=== PATIENT | male | born 1960 | race Caucasian/White ===

== ENCOUNTER 2022-05-28 09:00 | Inpatient (IN) ==
[2022-05-28] MEDS ORDERED: GLUCAGON 1 MG VIAL IM PRN (09:28)
[2022-05-28] MEDS ORDERED: DEXTROSE 10% 250 ML BAG IV PRN (09:37)
[2022-05-28] MEDS ORDERED: MORPHINE 2 MG/1 ML SYRINGE IV PRN (15:02)
[2022-05-28] MEDS ORDERED: NITROGLYCERIN SL 0.4 MG TABLET SL PRN (15:02)
[2022-05-28] MEDS: INSULIN REGULAR 100 UNIT/ML SUBCUT SCH ×3 (15:11→22:26)
[2022-05-28] MEDS: SODIUM CHLORIDE 0.9% 1,000 ML IV SCH (15:11)
[2022-05-28 15:19] LABS: Basophils # 0.1 10*3/uL (0.0-0.2); Basophils % 0.8 % (0.0-0.8); Eosinophils # 0.4 10*3/uL (0.0-0.87); Eosinophils % 3.8 % (0.00-10.9); Hematocrit 48.6 VOL% (42.0-52.0); Hemoglobin 15.8 GM/DL (14.0-18.0); Immature Granulocytes % 0.4 %; Immature Granulocytes Absolute 0.04 #; Lymphocytes # 2.8 10*3/uL (1.4-4.0); Lymphocytes % 28.2 % (21.2-54.2); Mean Corpuscular HGB Conc 32.5 GM/DL (32-36); Mean Corpuscular Volume 94.2 FL (87-102); Mean Platelet Volume 9.8 FL (9.6-12.0); Monocytes # 0.7 10*3/uL (0.11-0.8); Monocytes % 7.2 % (1.7-12.7); Neutrophils % 59.6 % (38.7-73.9); Platelet Count 216 T/CUMM (130-400); Red Blood Count 5.16 MC/CUMM (3.8-5.5); Red Cell Distribution Width 14.2 % (9.3-17.3)
[2022-05-28] MEDS: CHLORHEXIDINE 4% SOLN 118 ML BOTTLE TOP SCH ×2 (15:31→21:49)
[2022-05-28] MEDS ORDERED: ONDANSETRON 4 MG/2 ML VIAL IV PRN (15:34)
[2022-05-28] MEDS ORDERED: ZALEPLON 5 MG CAPSULE PO PRN (15:35)
[2022-05-28] MEDS ORDERED: hydrALAZINE 20 MG/1 ML VIAL IV PRN (15:38)
[2022-05-28 15:41] LABS: Alanine Aminotransferase 37 U/L (16-61); Albumin 3.5 G/DL (3.4-5.0); Alkaline Phosphatase 164 U/L (45-117); Aspartate Amino Transferase 16 U/L (0-37); Bilirubin,Total < 0.39 MG/DL (0.20-1.00); Blood Urea Nitrogen 26 MG/DL (7-18); Calcium 9.6 MG/DL (8.5-10.1); Carbon Dioxide 26 MMOL/L (21-32); Chloride 103 MMOL/L (98-107); Glucose 355 MG/DL (74-106); Osmolality,Calculated 288.1 MOS/KG (273-304); Potassium 4.7 MMOL/L (3.5-5.1); Sodium 135 MMOL/L (136-145); Total Protein 7.3 G/DL (6.4-8.2)
[2022-05-28] MEDS: CLORAZEPATE 3.75 MG TABLET PO PRN ×2 (16:36→21:49)
[2022-05-28 16:56] LABS: Arterial Base Excess iSTAT 0 MMOL/L (-2.5-2.5); Arterial Bicarbonate iSTAT 25.4 MMOL/L (20-26); Arterial O2 Saturation iSTAT 96 % (95-100); Arterial PCO2 iSTAT 44 MM HG (35-48); Arterial PO2 iSTAT 86 MM HG (80-95); Arterial Total CO2 iSTAT 27 MMO/L (23-27); Arterial pH iSTAT 7.374 (7.35-7.45)
[2022-05-28] MEDS ORDERED: PANTOPRAZOLE 40 MG TABLET PO ONE (20:09)
[2022-05-28] MEDS ORDERED: DIAZEPAM 5 MG TABLET PO ONE (20:09)
[2022-05-28] MEDS ORDERED: AMITRIPTYLINE 25 MG TABLET PO SCH (21:00)
[2022-05-28] MEDS: GABAPENTIN 400 MG CAPSULE PO SCH (21:49)
[2022-05-28] MEDS: CHLORHEXIDINE 0.12% ORAL RINSE 60 ML BOTTLE SWISH/SPIT SCH (21:49)
[2022-05-29] MEDS ORDERED: CEFUROXIME INJ 1,500 MG in SODIUM CHLORIDE 0.9% 100 ML IV ONE (05:00)
[2022-05-29] MEDS: CHLORHEXIDINE 4% SOLN 118 ML BOTTLE TOP SCH (05:52)
[2022-05-29] MEDS ORDERED: DIAZEPAM 5 MG TABLET PO ONE (06:00)
[2022-05-29] MEDS ORDERED: PANTOPRAZOLE 40 MG TABLET PO ONE (06:00)
[2022-05-29] MEDS ORDERED: VECURONIUM 10 MG VIAL IV ONE ×3 (06:18→08:50)
[2022-05-29] MEDS ORDERED: PHENYLEPHRINE DRIP 20 MG/250 ML PREMIX IV ONE (06:18)
[2022-05-29] MEDS ORDERED: MIDAZOLAM 10 MG/2 ML VIAL ONE ×3 (06:18→07:57)
[2022-05-29] MEDS ORDERED: LACTATED RINGERS 1,000 ML IV ONE (06:18)
[2022-05-29] MEDS ORDERED: ETOMIDATE 40 MG/20 ML VIAL IV ONE (06:18)
[2022-05-29] MEDS ORDERED: SODIUM CHLORIDE 0.9% 250 ML IV ONE (06:18)
[2022-05-29] MEDS ORDERED: SODIUM CHLORIDE 0.9% 1,000 ML IV ONE (06:18)
[2022-05-29] MEDS ORDERED: LIDOCAINE 2% 5 ML VIAL ONE ×2 (06:18→10:43)
[2022-05-29] MEDS ORDERED: SEVOFLURANE 1 UNIT/15 MINUTE INH ONE ×2 (06:18→09:53)
[2022-05-29] MEDS ORDERED: SUFentanil 250 MCG/5 ML AMP ONE (06:19)
[2022-05-29] MEDS ORDERED: AMINOCAPROIC ACID 5,000 MG/20 ML VIAL ONE (06:19)
[2022-05-29 07:27] LABS: ABG Oxygen Saturation 98.7 % (95-100); ABG PH 7.428 (7.35-7.45); ABG TCO2 24.7 MMOL/L (23-27); Glucose Heart Surgery 76 MG/DL (74-106); Hematocrit Heart Surgery 45.5 PERCENT (42-52); Hemoglobin Heart Surgery 14.8 G/DL (14.0-18.0); Ionized Calcium Arterial 1.21 MMOL/L (1.21-1.46); PH Patient Temp Arterial 7.428; Patient Temperature 37 CELCIUS; Potassium Heart/CVR 3.7 MMOL/L (3.5-5.1); Sodium Heart/CVR 142 MMOL/L (135-145)
[2022-05-29] MEDS ORDERED: CALCIUM CHLORIDE 1,000 MG/10 ML VIAL IV ONE (07:57)
[2022-05-29] MEDS ORDERED: SUFentanil 50 MCG/ML AMP ONE ×2 (08:10→10:37)
[2022-05-29 08:17] LABS: Bacteria,Urine Occasional /HPF (Few); Bilirubin,Urine Negative (Negative); Blood, Urine Trace mg/dL (Negative); Glucose,Urine (UA) 500 mg/dL (Negative); Ketones,Urine Negative (Negative); Mucus,Urine Occasional /LPF (Occasional); Nitrite,Urine Negative (Negative); Protein,Urine Negative (Negative); RBC,Urine 4 /HPF (0-4); Squamous Epithelial Cell,Urine Occasional /HPF (0-10); Urine Appearance Clear (Clear); Urine Color Yellow (Yellow); Urine Specific Gravity 1.025 (1.001-1.035); Urine Urobilinogen 0.2 eU/dL (<2.0); Urine pH 5.5 (4.5-8.0)
[2022-05-29] MEDS ORDERED: PHENYLEPHRINE 1 MG/10 ML SYRINGE IV ONE (08:56)
[2022-05-29 09:20] LABS: Hematocrit Heart Surgery 30.4 PERCENT (42-52); Hemoglobin Heart Surgery 9.8 G/DL (14.0-18.0); PCO2 Patient Temp Venous 43.2 MM HG; PH Patient Temp Venous 7.427; PO2 Patient Temp Venous 36.8 MM HG; Potassium Heart/CVR 3.7 MMOL/L (3.5-5.1); VBG Base Excess 3.9 MEQ/L (0-4); VBG HCO3 27.6 MEQ/L (24-28); VBG Oxygen Saturation 77.7 %; VBG PCO2 49.9 MMHG (41-51); VBG PH 7.384; VBG PO2 45.3 MMHG (17-40); VBG Total CO2 27.3 MMOL/L
[2022-05-29] MEDS ORDERED: NITROPRUSSIDE 50 MG/2 ML VIAL ONE (09:42)
[2022-05-29] MEDS ORDERED: SODIUM BICARBONATE 50 MEQ/50 ML VIAL IV ONE ×2 (09:42→10:47)
[2022-05-29] MEDS ORDERED: HEPARIN/NACL 0.9% 2 UNITS/ML 1,000 UNIT/500 ML BAG IV ONE (09:42)
[2022-05-29] MEDS ORDERED: PHENYLEPHRINE DRIP 40 MG/250 ML PREMIX IV ONE (09:43)
[2022-05-29] MEDS ORDERED: CALCIUM CHLORIDE 1,000 MG/10 ML SYRINGE IV ONE (09:43)
[2022-05-29] MEDS ORDERED: ALBUMIN 5% 25.0 GM/500 ML VIAL IV ONE (09:43)
[2022-05-29] MEDS ORDERED: POTASSIUM CHLORIDE RIDER 20 MEQ/100 ML PREMIX IV ONE (09:43)
[2022-05-29 09:51] LABS: Hemoglobin Heart Surgery 10.4 G/DL (14.0-18.0); PCO2 Patient Temp Venous 41.1 MM HG; PH Patient Temp Venous 7.441; PO2 Patient Temp Venous 31.6 MM HG; Potassium Heart/CVR 4.4 MMOL/L (3.5-5.1); VBG Base Excess 3.7 MEQ/L (0-4); VBG HCO3 27.2 MEQ/L (24-28); VBG Oxygen Saturation 70.1 %; VBG PCO2 47.5 MMHG (41-51); VBG PH 7.397; VBG Total CO2 26.6 MMOL/L
[2022-05-29] MEDS: GABAPENTIN 400 MG CAPSULE PO SCH (10:26)
[2022-05-29] MEDS: INSULIN REGULAR 100 UNIT/ML SUBCUT SCH (10:26)
[2022-05-29] MEDS: SODIUM CHLORIDE 0.9% 1,000 ML IV SCH (10:27)
[2022-05-29] MEDS: CHLORHEXIDINE 0.12% ORAL RINSE 60 ML BOTTLE SWISH/SPIT SCH (10:27)
[2022-05-29 10:32] LABS: ABG Base Excess 4.1 MMOL/L (-2.5-2.5); ABG Oxygen Saturation 92.6 % (95-100); ABG PCO2 42.4 MM HG (35-48); ABG PH 7.438 (7.35-7.45); ABG PO2 66.6 MM HG (80-95); Glucose Heart Surgery 173 MG/DL (74-106); Hematocrit Heart Surgery 31.5 PERCENT (42-52); Hemoglobin Heart Surgery 10.2 G/DL (14.0-18.0); Ionized Calcium Arterial 1.21 MMOL/L (1.21-1.46); PCO2 Patient Temp Arterial 42.4 MMHG; PH Patient Temp Arterial 7.438; PO2 Patient Temp Arterial 66.6 MM HG; Patient Temperature 37 CELCIUS; Potassium Heart/CVR 3.7 MMOL/L (3.5-5.1); Sodium Heart/CVR 137 MMOL/L (135-145)
[2022-05-29] MEDS ORDERED: ALBUMIN 25% 25 GM/100 ML VIAL IV ONE (10:43)
[2022-05-29] MEDS ORDERED: HEPARIN 10,000 UNIT/10 ML VIAL ONE (10:44)
[2022-05-29] MEDS ORDERED: methylPREDNISolone SOD SUC 1,000 MG/8 ML VIAL ONE (10:44)
[2022-05-29] MEDS ORDERED: PROTAMINE SULFATE 250 MG/25 ML VIAL IV ONE (10:44)
[2022-05-29] MEDS ORDERED: MAGNESIUM SULFATE 5 GM/10 ML VIAL IV ONE (10:44)
[2022-05-29] MEDS ORDERED: DEXTROSE 5% KCL 20 MEQ 20 MEQ/1,000 ML BAG IV ONE (10:44)
[2022-05-29] MEDS ORDERED: MANNITOL 12.5 GM/50 ML VIAL IV ONE (10:45)
[2022-05-29] MEDS ORDERED: PROTAMINE SULFATE 50 MG/5 ML VIAL IV ONE (10:46)
[2022-05-29] MEDS ORDERED: FUROSEMIDE 20 MG/2 ML VIAL ONE (10:46)
[2022-05-29] MEDS ORDERED: MAGNESIUM SULF RIDER 2 GM/50 ML PREMIX IV PRN (11:10)
[2022-05-29] MEDS ORDERED: CHLORHEXIDINE 4% SOLN 118 ML BOTTLE TOP PRN (11:10)
[2022-05-29] MEDS ORDERED: INSULIN REGULAR 100 UNIT/ML IV ONE (11:10)
[2022-05-29] MEDS ORDERED: PHENYLEPHRINE DRIP 40 MG/250 ML PREMIX IV PRN (11:10)
[2022-05-29] MEDS ORDERED: LACTATED RINGERS 250 ML IV PRN (11:10)
[2022-05-29] MEDS ORDERED: VECURONIUM 10 MG VIAL IV PRN ×2 (11:10)
[2022-05-29] MEDS ORDERED: MIDAZOLAM 2 MG/2 ML VIAL IV PRN (11:10)
[2022-05-29] MEDS ORDERED: INSULIN REGULAR 100 UNIT/ML IV PRN (11:10)
[2022-05-29] MEDS ORDERED: ONDANSETRON 4 MG/2 ML VIAL IV PRN (11:10)
[2022-05-29] MEDS ORDERED: NITROPRUSSIDE 100 MG in DEXTROSE 5% 250 ML IV PRN (11:10)
[2022-05-29] MEDS ORDERED: ACETAMINOPHEN 650 MG SUPP RECTAL PRN (11:10)
[2022-05-29] MEDS ORDERED: MIDAZOLAM 10 MG/2 ML VIAL IV PRN (11:10)
[2022-05-29] MEDS ORDERED: CALCIUM CHLORIDE 1,000 MG/10 ML SYRINGE IV PRN (11:10)
[2022-05-29] MEDS ORDERED: POTASSIUM CHLORIDE RIDER 10 MEQ/100 ML PREMIX IV PRN (11:10)
[2022-05-29] MEDS ORDERED: MAGNESIUM SULF RIDER 4 GM/100 ML PREMIX IV PRN (11:10)
[2022-05-29] MEDS ORDERED: SODIUM CHLORIDE 0.45% 1,000 ML IV SCH ×2 (11:10)
[2022-05-29] MEDS ORDERED: DEXTROSE 10% 250 ML BAG IV PRN ×2 (11:22)
[2022-05-29 11:59] LABS: Basophils # 0.1 10*3/uL (0.0-0.2); Basophils % 0.4 % (0.0-0.8); Eosinophils # 0.2 10*3/uL (0.0-0.87); Eosinophils % 1.3 % (0.00-10.9); Hematocrit 33.7 VOL% (42.0-52.0); Immature Granulocytes % 0.4 %; Immature Granulocytes Absolute 0.06 #; Lymphocytes # 1.4 10*3/uL (1.4-4.0); Lymphocytes % 10.6 % (21.2-54.2); Mean Corpuscular HGB Conc 32.6 GM/DL (32-36); Mean Corpuscular Volume 93.6 FL (87-102); Mean Platelet Volume 9.9 FL (9.6-12.0); Monocytes # 0.7 10*3/uL (0.11-0.8); Monocytes % 5.1 % (1.7-12.7); Neutrophils % 82.2 % (38.7-73.9); Platelet Count 171 T/CUMM (130-400); Red Cell Distribution Width 14.1 % (9.3-17.3); White Blood Count 13.4 T/CUMM (4-12)
[2022-05-29 12:01] LABS: ABG Oxygen Saturation 97.3 % (95-100); ABG PCO2 46.3 MM HG (35-48); ABG TCO2 26.2 MMOL/L (23-27); Glucose Heart Surgery 149 MG/DL (74-106); Hematocrit Heart Surgery 35.3 PERCENT (42-52); Hemoglobin Heart Surgery 11.5 G/DL (14.0-18.0); Potassium Heart/CVR 3.6 MMOL/L (3.5-5.1)
[2022-05-29] MEDS: POTASSIUM CHLORIDE RIDER 20 MEQ/100 ML PREMIX IV PRN ×2 (12:05→19:25)
[2022-05-29] MEDS ORDERED: LACTATED RINGERS 1,000 ML IV PRN (12:06)
[2022-05-29 12:09] LABS: INR 1.1; PT Patient Result 11.7 SECS (10.1-12.1)
[2022-05-29 12:20] LABS: CKMB % 4.61 %
[2022-05-29 12:21] LABS: High Sensitive Troponin I* 1930.8 ng/L (0-78)
[2022-05-29 12:29] LABS: Albumin 3.2 G/DL (3.4-5.0); Bilirubin,Total 0.5 MG/DL (0.20-1.00); Calcium 8.9 MG/DL (8.5-10.1); Osmolality,Calculated 287.3 MOS/KG (273-304); Potassium 3.7 MMOL/L (3.5-5.1); Total Protein 6.1 G/DL (6.4-8.2)
[2022-05-29] MEDS: ALBUMIN 5% 12.5 GM/250 ML VIAL IV PRN ×3 (13:00→20:13)
[2022-05-29 13:15] LABS: ABG Base Excess 4.1 MMOL/L (-2.5-2.5); ABG HCO3 28.1 MMOL/L (20-26); ABG Oxygen Saturation 98.1 % (95-100); ABG PCO2 44.8 MM HG (35-48); ABG PH 7.422 (7.35-7.45); ABG TCO2 25.9 MMOL/L (23-27); Glucose Heart Surgery 142 MG/DL (74-106); Hematocrit Heart Surgery 36.4 PERCENT (42-52); Hemoglobin Heart Surgery 11.8 G/DL (14.0-18.0); Potassium Heart/CVR 4.3 MMOL/L (3.5-5.1)
[2022-05-29] MEDS: INSULIN REGULAR DRIP 100 ML IV SCH ×2 (13:39→17:09)
[2022-05-29 15:51] LABS: ABG Base Excess 2.4 MMOL/L (-2.5-2.5); ABG HCO3 26.5 MMOL/L (20-26); ABG Oxygen Saturation 96.6 % (95-100); ABG PCO2 61.4 MM HG (35-48); ABG PH 7.303 (7.35-7.45); ABG TCO2 27.4 MMOL/L (23-27); Glucose Heart Surgery 203 MG/DL (74-106); Hematocrit Heart Surgery 35.9 PERCENT (42-52); Hemoglobin Heart Surgery 11.7 G/DL (14.0-18.0); Potassium Heart/CVR 4.4 MMOL/L (3.5-5.1)
[2022-05-29] MEDS ORDERED: DEXMEDETOMIDINE 200 MCG in SODIUM CHLORIDE 0.9% 48 ML IV PRN (16:12)
[2022-05-29] MEDS: MORPHINE 10 MG/1 ML VIAL IV PRN ×3 (17:18→21:50)
[2022-05-29 19:16] LABS: ABG Base Excess 2.4 MMOL/L (-2.5-2.5); ABG HCO3 26.5 MMOL/L (20-26); ABG Oxygen Saturation 96.8 % (95-100); ABG PCO2 56.2 MM HG (35-48); ABG PH 7.329 (7.35-7.45); ABG TCO2 26.7 MMOL/L (23-27); Glucose Heart Surgery 163 MG/DL (74-106); Hematocrit Heart Surgery 33.9 PERCENT (42-52); Potassium Heart/CVR 4.2 MMOL/L (3.5-5.1)
[2022-05-29 19:36] LABS: CKMB % 3.44 %
[2022-05-29 19:38] LABS: High Sensitive Troponin I* 4749.1 ng/L (0-78)
[2022-05-29 20:08] LABS: ABG Base Excess 2.3 MMOL/L (-2.5-2.5); ABG HCO3 26.4 MMOL/L (20-26); ABG Oxygen Saturation 95.2 % (95-100); ABG PCO2 55.9 MM HG (35-48); ABG PH 7.329 (7.35-7.45); ABG PO2 91.5 MM HG (80-95); ABG TCO2 26.7 MMOL/L (23-27); Glucose Heart Surgery 142 MG/DL (74-106); Hematocrit Heart Surgery 33.2 PERCENT (42-52); Hemoglobin Heart Surgery 10.8 G/DL (14.0-18.0); Potassium Heart/CVR 4.6 MMOL/L (3.5-5.1)
[2022-05-29] MEDS: CEFUROXIME INJ 1,500 MG in SODIUM CHLORIDE 0.9% 100 ML IV SCH (20:13)
[2022-05-29] MEDS ORDERED: CHLORHEXIDINE 0.12% ORAL RINSE 60 ML BOTTLE SWISH/SPIT SCH (21:00)
[2022-05-29 21:08] LABS: ABG Base Excess 2.7 MMOL/L (-2.5-2.5); ABG HCO3 26.7 MMOL/L (20-26); ABG Oxygen Saturation 94.6 % (95-100); ABG PCO2 49.2 MM HG (35-48); ABG PH 7.373 (7.35-7.45); ABG PO2 81.2 MM HG (80-95); Glucose Heart Surgery 122 MG/DL (74-106); Hemoglobin Heart Surgery 10.4 G/DL (14.0-18.0); Potassium Heart/CVR 4.5 MMOL/L (3.5-5.1)
[2022-05-29] MEDS ORDERED: DEXMEDETOMIDINE 400 MCG in SODIUM CHLORIDE 0.9% 96 ML IV PRN (22:00)
[2022-05-29] MEDS ORDERED: FUROSEMIDE 40 MG/4 ML VIAL IV PRN (22:08)
[2022-05-29] MEDS: KETOROLAC 30 MG/1 ML VIAL IV SCH (22:24)
[2022-05-30 00:31] LABS: ABG Base Excess 2.8 MMOL/L (-2.5-2.5); ABG HCO3 26.8 MMOL/L (20-26); ABG Oxygen Saturation 94.9 % (95-100); ABG PCO2 42.9 MM HG (35-48); ABG PH 7.418 (7.35-7.45); ABG PO2 80.2 MM HG (80-95); ABG TCO2 23.9 MMOL/L (23-27); Glucose Heart Surgery 105 MG/DL (74-106); Hematocrit Heart Surgery 43.2 PERCENT (42-52); Hemoglobin Heart Surgery 14.1 G/DL (14.0-18.0); Potassium Heart/CVR 4.4 MMOL/L (3.5-5.1)
[2022-05-30 01:12] LABS: ABG Base Excess 3.1 MMOL/L (-2.5-2.5); ABG HCO3 27.2 MMOL/L (20-26); ABG Oxygen Saturation 95.3 % (95-100); ABG PCO2 40.5 MM HG (35-48); ABG PO2 80.3 MM HG (80-95); ABG TCO2 24.7 MMOL/L (23-27); Glucose Heart Surgery 105 MG/DL (74-106); Hematocrit Heart Surgery 33.2 PERCENT (42-52); Hemoglobin Heart Surgery 10.7 G/DL (14.0-18.0); Potassium Heart/CVR 4.4 MMOL/L (3.5-5.1)
[2022-05-30] MEDS: POTASSIUM CHLORIDE RIDER 20 MEQ/100 ML PREMIX IV PRN ×2 (01:19→03:05)
[2022-05-30 02:37] LABS: ABG Base Excess 2.3 MMOL/L (-2.5-2.5); ABG HCO3 26.4 MMOL/L (20-26); ABG PCO2 52.5 MM HG (35-48); ABG PH 7.349 (7.35-7.45); ABG PO2 98.1 MM HG (80-95); ABG TCO2 26.1 MMOL/L (23-27); Glucose Heart Surgery 117 MG/DL (74-106); Hematocrit Heart Surgery 34.2 PERCENT (42-52); Hemoglobin Heart Surgery 11.1 G/DL (14.0-18.0); Potassium Heart/CVR 4.3 MMOL/L (3.5-5.1)
[2022-05-30 03:37] LABS: ABG Base Excess 1.6 MMOL/L (-2.5-2.5); ABG HCO3 25.8 MMOL/L (20-26); ABG Oxygen Saturation 96.1 % (95-100); ABG PH 7.348 (7.35-7.45); ABG TCO2 25.4 MMOL/L (23-27); Glucose Heart Surgery 119 MG/DL (74-106); Hematocrit Heart Surgery 33.2 PERCENT (42-52); Hemoglobin Heart Surgery 10.8 G/DL (14.0-18.0); Potassium Heart/CVR 4.8 MMOL/L (3.5-5.1)
[2022-05-30 03:40] LABS: Basophils % 0.1 % (0.0-0.8); Hematocrit 33.8 VOL% (42.0-52.0); Hemoglobin 10.7 GM/DL (14.0-18.0); Immature Granulocytes % 0.5 %; Lymphocytes # 1.2 10*3/uL (1.4-4.0); Lymphocytes % 6.2 % (21.2-54.2); Mean Corpuscular HGB Conc 31.7 GM/DL (32-36); Mean Corpuscular Volume 94.9 FL (87-102); Monocytes # 1.3 10*3/uL (0.11-0.8); Monocytes % 6.7 % (1.7-12.7); Neutrophils % 86.5 % (38.7-73.9); Platelet Count 178 T/CUMM (130-400); Red Blood Count 3.56 MC/CUMM (3.8-5.5); Red Cell Distribution Width 14.4 % (9.3-17.3); White Blood Count 18.9 T/CUMM (4-12)
[2022-05-30 04:02] LABS: CKMB % 2.7 %
[2022-05-30 04:03] LABS: High Sensitive Troponin I* 3497.5 ng/L (0-78)
[2022-05-30 04:10] LABS: Albumin 3.9 G/DL (3.4-5.0); Bilirubin,Direct 0.14 MG/DL (0.0-0.20); Bilirubin,Total 0.4 MG/DL (0.20-1.00); Calcium 8.7 MG/DL (8.5-10.1); Osmolality,Calculated 286.3 MOS/KG (273-304); Potassium 5.1 MMOL/L (3.5-5.1); Total Protein 6.4 G/DL (6.4-8.2)
[2022-05-30] MEDS: KETOROLAC 30 MG/1 ML VIAL IV SCH ×4 (04:22→22:30)
[2022-05-30] MEDS: MORPHINE 10 MG/1 ML VIAL IV PRN (04:25)
[2022-05-30] MEDS ORDERED: MORPHINE 2 MG/1 ML SYRINGE IV PRN (04:32)
[2022-05-30 04:58] LABS: ABG Base Excess 1.7 MMOL/L (-2.5-2.5); ABG HCO3 25.9 MMOL/L (20-26); ABG Oxygen Saturation 96.4 % (95-100); ABG PCO2 53.5 MM HG (35-48); ABG PH 7.335 (7.35-7.45); ABG TCO2 25.9 MMOL/L (23-27); Glucose Heart Surgery 126 MG/DL (74-106); Hematocrit Heart Surgery 32.6 PERCENT (42-52); Hemoglobin Heart Surgery 10.5 G/DL (14.0-18.0); Potassium Heart/CVR 4.5 MMOL/L (3.5-5.1)
[2022-05-30 05:47] LABS: ABG Base Excess 2.5 MMOL/L (-2.5-2.5); ABG HCO3 26.6 MMOL/L (20-26); ABG Oxygen Saturation 95.8 % (95-100); ABG PCO2 50.1 MM HG (35-48); ABG PH 7.366 (7.35-7.45); ABG PO2 93.3 MM HG (80-95); ABG TCO2 25.9 MMOL/L (23-27); Glucose Heart Surgery 126 MG/DL (74-106); Hematocrit Heart Surgery 33.2 PERCENT (42-52); Hemoglobin Heart Surgery 10.8 G/DL (14.0-18.0); Potassium Heart/CVR 4.6 MMOL/L (3.5-5.1)
[2022-05-30] MEDS ORDERED: oxyCODONE/ACETAMINOPHEN 5-325 MG TABLET PO PRN ×2 (07:18)
[2022-05-30] MEDS ORDERED: guaiFENesin/DM ER 600-30 MG TABLET PO PRN (07:19)
[2022-05-30] MEDS ORDERED: METOCLOPRAMIDE 10 MG/2 ML VIAL IV ONE (07:36)
[2022-05-30] MEDS ORDERED: INSULIN REGULAR 100 UNIT/ML SUBCUT SCH (08:00)
[2022-05-30 08:21] LABS: ABG Base Excess 2.1 MMOL/L (-2.5-2.5); ABG HCO3 26.2 MMOL/L (20-26); ABG Oxygen Saturation 95.8 % (95-100); ABG PCO2 52.1 MM HG (35-48); ABG PH 7.347 (7.35-7.45); ABG PO2 94.3 MM HG (80-95); ABG TCO2 26.1 MMOL/L (23-27); Glucose Heart Surgery 138 MG/DL (74-106); Hematocrit Heart Surgery 31.9 PERCENT (42-52); Hemoglobin Heart Surgery 10.3 G/DL (14.0-18.0); Potassium Heart/CVR 4.7 MMOL/L (3.5-5.1)
[2022-05-30] MEDS: INSULIN REGULAR 100 UNIT/ML SUBCUT SCH ×5 (08:37→23:59)
[2022-05-30] MEDS: CEFUROXIME INJ 1,500 MG in SODIUM CHLORIDE 0.9% 100 ML IV SCH ×2 (08:51→21:28)
[2022-05-30] MEDS: GABAPENTIN 400 MG CAPSULE PO SCH ×3 (08:52→21:08)
[2022-05-30] MEDS: ASPIRIN EC 81 MG TABLET PO SCH (08:53)
[2022-05-30] MEDS: DOCUSATE SODIUM 100 MG CAPSULE PO SCH ×2 (08:53→21:08)
[2022-05-30] MEDS: ASCORBIC ACID 500 MG TABLET PO SCH ×2 (08:53→21:08)
[2022-05-30] MEDS: PANTOPRAZOLE 40 MG TABLET PO SCH (08:53)
[2022-05-30] MEDS: ALBUTEROL/IPRATROPIUM 3 ML NEB RESP TX SCH ×4 (08:53→23:38)
[2022-05-30] MEDS ORDERED: MAGNESIUM HYDROXIDE SUSP 30 ML UDCUP PO PRN (08:57)
[2022-05-30] MEDS ORDERED: ACETAMINOPHEN 325 MG TABLET PO PRN (08:57)
[2022-05-30] MEDS ORDERED: POTASSIUM CHLORIDE 20 MEQ TABLET PO PRN (08:57)
[2022-05-30] MEDS ORDERED: MAGNESIUM SULF RIDER 2 GM/50 ML PREMIX IV PRN (08:57)
[2022-05-30] MEDS ORDERED: MAGNESIUM SULF RIDER 4 GM/100 ML PREMIX IV PRN (08:57)
[2022-05-30] MEDS ORDERED: GLUCAGON 1 MG VIAL IM PRN (08:57)
[2022-05-30] MEDS: METOPROLOL TARTRATE 25 MG TABLET PO SCH ×3 (08:59→21:07)
[2022-05-30] MEDS ORDERED: SODIUM CHLOR 0.45% KCL 20 MEQ 20 MEQ/1,000 ML BAG IV SCH (09:00)
[2022-05-30] MEDS ORDERED: DEXTROSE 10% 250 ML BAG IV PRN (09:01)
[2022-05-30] MEDS: CHLORHEXIDINE 0.12% ORAL RINSE 60 ML BOTTLE SWISH/SPIT SCH ×2 (09:32→21:10)
[2022-05-30] MEDS: ONDANSETRON 4 MG/2 ML VIAL IV PRN ×2 (10:22→18:09)
[2022-05-30 11:17] LABS: ABG Base Excess 1.3 MMOL/L (-2.5-2.5); ABG HCO3 25.5 MMOL/L (20-26); ABG Oxygen Saturation 95.5 % (95-100); ABG PCO2 54.2 MM HG (35-48); ABG PH 7.325 (7.35-7.45); ABG PO2 93.3 MM HG (80-95); ABG TCO2 25.8 MMOL/L (23-27)
[2022-05-30 11:37] LABS: CKMB % 2.14 %; High Sensitive Troponin I* 2751.2 ng/L (0-78)
[2022-05-30] MEDS ORDERED: DEXTROSE 50% 25 GM/50 ML VIAL IV PRN (14:24)
[2022-05-30 16:32] LABS: ABG Base Excess 2.3 MMOL/L (-2.5-2.5); ABG HCO3 26.4 MMOL/L (20-26); ABG Oxygen Saturation 93.1 % (95-100); ABG PCO2 50.4 MM HG (35-48); ABG PH 7.361 (7.35-7.45); ABG PO2 79.3 MM HG (80-95); ABG TCO2 25.9 MMOL/L (23-27)
[2022-05-30] MEDS: ROSUVASTATIN 20 MG TABLET PO SCH (21:08)
[2022-05-30] MEDS: AMITRIPTYLINE 25 MG TABLET PO SCH (21:08)
[2022-05-30] MEDS: SERTRALINE 50 MG TABLET PO SCH (21:08)
[2022-05-30] MEDS: ZALEPLON 5 MG CAPSULE PO PRN ×2 (22:33→23:59)
[2022-05-31] MEDS: INSULIN REGULAR 100 UNIT/ML SUBCUT SCH ×6 (04:15→20:03)
[2022-05-31] MEDS: KETOROLAC 30 MG/1 ML VIAL IV SCH ×4 (05:18→22:50)
[2022-05-31] MEDS ORDERED: FUROSEMIDE 40 MG/4 ML VIAL IV ONE (06:00)
[2022-05-31 06:17] LABS: Basophils % 0.1 % (0.0-0.8); Eosinophils % 0.1 % (0.00-10.9); Hematocrit 31.7 VOL% (42.0-52.0); Hemoglobin 9.9 GM/DL (14.0-18.0); Immature Granulocytes % 0.7 %; Lymphocytes # 2.1 10*3/uL (1.4-4.0); Lymphocytes % 13.7 % (21.2-54.2); Mean Corpuscular HGB Conc 31.2 GM/DL (32-36); Mean Corpuscular Volume 97.5 FL (87-102); Mean Platelet Volume 10.4 FL (9.6-12.0); Monocytes # 1.6 10*3/uL (0.11-0.8); Monocytes % 10.5 % (1.7-12.7); Neutrophils % 74.9 % (38.7-73.9); Platelet Count 177 T/CUMM (130-400); Red Blood Count 3.25 MC/CUMM (3.8-5.5); Red Cell Distribution Width 14.6 % (9.3-17.3); White Blood Count 15.4 T/CUMM (4-12)
[2022-05-31 06:24] LABS: Albumin 3.4 G/DL (3.4-5.0); Bilirubin,Direct 0.13 MG/DL (0.0-0.20); Bilirubin,Total 0.4 MG/DL (0.20-1.00); Calcium 8.5 MG/DL (8.5-10.1); Osmolality,Calculated 291.4 MOS/KG (273-304); Potassium 4.5 MMOL/L (3.5-5.1); Total Protein 5.8 G/DL (6.4-8.2)
[2022-05-31 06:28] LABS: Alanine Aminotransferase 28 U/L (16-61); Albumin 3.3 G/DL (3.4-5.0); Alkaline Phosphatase 83 U/L (45-117); Aspartate Amino Transferase 24 U/L (0-37); Bilirubin,Indirect 0.3 MG/DL (0.0-1.0); Total Protein 6.4 G/DL (6.4-8.2)
[2022-05-31] MEDS: ALBUTEROL/IPRATROPIUM 3 ML NEB RESP TX SCH ×3 (07:05→19:13)
[2022-05-31] MEDS: GABAPENTIN 400 MG CAPSULE PO SCH ×3 (08:28→20:35)
[2022-05-31] MEDS: ASPIRIN EC 81 MG TABLET PO SCH (08:28)
[2022-05-31] MEDS: FERROUS SULFATE 325 MG TABLET PO SCH (08:28)
[2022-05-31] MEDS: METOPROLOL TARTRATE 25 MG TABLET PO SCH ×2 (08:28→20:35)
[2022-05-31] MEDS: DOCUSATE SODIUM 100 MG CAPSULE PO SCH ×2 (08:28→20:34)
[2022-05-31] MEDS: ASCORBIC ACID 500 MG TABLET PO SCH ×2 (08:28→20:35)
[2022-05-31] MEDS: PANTOPRAZOLE 40 MG TABLET PO SCH (08:28)
[2022-05-31] MEDS: CHLORHEXIDINE 0.12% ORAL RINSE 60 ML BOTTLE SWISH/SPIT SCH ×2 (08:29→20:38)
[2022-05-31] MEDS: GLIMEPIRIDE 4 MG TABLET PO SCH (16:26)
[2022-05-31] MEDS: metFORMIN 500 MG TABLET PO SCH (16:26)
[2022-05-31] MEDS: SERTRALINE 50 MG TABLET PO SCH (20:34)
[2022-05-31] MEDS: ROSUVASTATIN 20 MG TABLET PO SCH (20:34)
[2022-05-31] MEDS: ZALEPLON 5 MG CAPSULE PO PRN (20:34)
[2022-05-31] MEDS: AMITRIPTYLINE 25 MG TABLET PO SCH (20:38)
[2022-05-31] MEDS: ALUMINUM/MAGNES/SIMETH MAX STR 30 ML UDCUP PO PRN (21:58)
[2022-06-01] MEDS: ALBUTEROL/IPRATROPIUM 3 ML NEB RESP TX SCH ×3 (00:04→12:56)
[2022-06-01] MEDS: INSULIN REGULAR 100 UNIT/ML SUBCUT SCH ×6 (00:17→21:36)
[2022-06-01] MEDS: ALUMINUM/MAGNES/SIMETH MAX STR 30 ML UDCUP PO PRN ×2 (05:02→22:27)
[2022-06-01 05:37] LABS: Basophils # 0.1 10*3/uL (0.0-0.2); Basophils % 0.3 % (0.0-0.8); Eosinophils # 0.2 10*3/uL (0.0-0.87); Eosinophils % 1.5 % (0.00-10.9); Hematocrit 31.5 VOL% (42.0-52.0); Immature Granulocytes % 0.6 %; Immature Granulocytes Absolute 0.09 #; Lymphocytes # 2.8 10*3/uL (1.4-4.0); Lymphocytes % 17.7 % (21.2-54.2); Mean Corpuscular HGB Conc 31.7 GM/DL (32-36); Mean Corpuscular Volume 96.9 FL (87-102); Mean Platelet Volume 9.9 FL (9.6-12.0); Monocytes # 1.8 10*3/uL (0.11-0.8); Monocytes % 11.7 % (1.7-12.7); Neutrophils % 68.2 % (38.7-73.9); Platelet Count 185 T/CUMM (130-400); Red Blood Count 3.25 MC/CUMM (3.8-5.5); Red Cell Distribution Width 14.6 % (9.3-17.3); White Blood Count 15.6 T/CUMM (4-12)
[2022-06-01 05:56] LABS: Albumin 3.1 G/DL (3.4-5.0); Bilirubin,Direct 0.17 MG/DL (0.0-0.20); Bilirubin,Total 0.5 MG/DL (0.20-1.00); Calcium 8.6 MG/DL (8.5-10.1); Osmolality,Calculated 289.3 MOS/KG (273-304); Potassium 3.9 MMOL/L (3.5-5.1); Total Protein 6.7 G/DL (6.4-8.2)
[2022-06-01 05:57] LABS: Alanine Aminotransferase 31 U/L (16-61); Alkaline Phosphatase 91 U/L (45-117); Aspartate Amino Transferase 21 U/L (0-37); Bilirubin,Indirect 0.3 MG/DL (0.0-1.0); Total Protein 6.7 G/DL (6.4-8.2)
[2022-06-01] MEDS: KETOROLAC 30 MG/1 ML VIAL IV SCH ×4 (07:16→22:26)
[2022-06-01] MEDS: GLIMEPIRIDE 4 MG TABLET PO SCH (08:09)
[2022-06-01] MEDS: metFORMIN 500 MG TABLET PO SCH ×2 (08:09→16:16)
[2022-06-01] MEDS: GABAPENTIN 400 MG CAPSULE PO SCH ×3 (08:09→21:35)
[2022-06-01] MEDS: DOCUSATE SODIUM 100 MG CAPSULE PO SCH ×2 (08:09→21:35)
[2022-06-01] MEDS: PANTOPRAZOLE 40 MG TABLET PO SCH (08:10)
[2022-06-01] MEDS: ASCORBIC ACID 500 MG TABLET PO SCH ×2 (08:10→21:35)
[2022-06-01] MEDS: FERROUS SULFATE 325 MG TABLET PO SCH (08:10)
[2022-06-01] MEDS: ASPIRIN EC 81 MG TABLET PO SCH (08:10)
[2022-06-01] MEDS: CHLORHEXIDINE 0.12% ORAL RINSE 60 ML BOTTLE SWISH/SPIT SCH ×2 (08:10→21:36)
[2022-06-01] MEDS: METOPROLOL TARTRATE 25 MG TABLET PO SCH ×2 (08:51→21:36)
[2022-06-01] MEDS ORDERED: LACTULOSE 20 GM/30 ML UDCUP PO PRN (17:54)
[2022-06-01] MEDS: ZALEPLON 5 MG CAPSULE PO PRN (21:35)
[2022-06-01] MEDS: SERTRALINE 50 MG TABLET PO SCH (21:35)
[2022-06-01] MEDS: ROSUVASTATIN 20 MG TABLET PO SCH (21:36)
[2022-06-01] MEDS: AMITRIPTYLINE 25 MG TABLET PO SCH (21:41)
[2022-06-02] MEDS: KETOROLAC 30 MG/1 ML VIAL IV SCH ×4 (05:10→23:26)
[2022-06-02] MEDS: ALBUTEROL/IPRATROPIUM 3 ML NEB RESP TX SCH ×4 (05:19→19:50)
[2022-06-02 05:58] LABS: Basophils % 0.4 % (0.0-0.8); Eosinophils # 0.5 10*3/uL (0.0-0.87); Eosinophils % 4.9 % (0.00-10.9); Hematocrit 28.6 VOL% (42.0-52.0); Hemoglobin 8.8 GM/DL (14.0-18.0); Immature Granulocytes % 0.5 %; Immature Granulocytes Absolute 0.05 #; Lymphocytes # 2.1 10*3/uL (1.4-4.0); Lymphocytes % 19.9 % (21.2-54.2); Mean Corpuscular HGB Conc 30.8 GM/DL (32-36); Mean Corpuscular Volume 98.6 FL (87-102); Mean Platelet Volume 10.5 FL (9.6-12.0); Monocytes # 0.9 10*3/uL (0.11-0.8); Monocytes % 8.6 % (1.7-12.7); Neutrophils % 65.7 % (38.7-73.9); Platelet Count 181 T/CUMM (130-400); Red Cell Distribution Width 14.5 % (9.3-17.3); White Blood Count 10.3 T/CUMM (4-12)
[2022-06-02 06:13] LABS: Calcium 8.7 MG/DL (8.5-10.1); Osmolality,Calculated 292.5 MOS/KG (273-304); Potassium 4.1 MMOL/L (3.5-5.1)
[2022-06-02] MEDS: INSULIN REGULAR 100 UNIT/ML SUBCUT SCH ×4 (09:18→21:26)
[2022-06-02] MEDS: FERROUS SULFATE 325 MG TABLET PO SCH (09:19)
[2022-06-02] MEDS: DOCUSATE SODIUM 100 MG CAPSULE PO SCH ×2 (09:19→21:25)
[2022-06-02] MEDS: metFORMIN 500 MG TABLET PO SCH ×2 (09:19→16:54)
[2022-06-02] MEDS: GLIMEPIRIDE 4 MG TABLET PO SCH (09:19)
[2022-06-02] MEDS: PANTOPRAZOLE 40 MG TABLET PO SCH (09:19)
[2022-06-02] MEDS: ASCORBIC ACID 500 MG TABLET PO SCH ×2 (09:20→21:24)
[2022-06-02] MEDS: METOPROLOL TARTRATE 25 MG TABLET PO SCH ×2 (09:20→21:26)
[2022-06-02] MEDS: ASPIRIN EC 81 MG TABLET PO SCH (09:20)
[2022-06-02] MEDS: GABAPENTIN 400 MG CAPSULE PO SCH ×3 (09:20→21:25)
[2022-06-02] MEDS: CHLORHEXIDINE 0.12% ORAL RINSE 60 ML BOTTLE SWISH/SPIT SCH ×2 (09:21→21:34)
[2022-06-02] MEDS: PIOGLITAZONE 15 MG TABLET PO SCH (21:23)
[2022-06-02] MEDS: ZALEPLON 5 MG CAPSULE PO PRN (21:24)
[2022-06-02] MEDS: ROSUVASTATIN 20 MG TABLET PO SCH (21:24)
[2022-06-02] MEDS: AMITRIPTYLINE 25 MG TABLET PO SCH (21:25)
[2022-06-02] MEDS: SERTRALINE 50 MG TABLET PO SCH (21:26)
[2022-06-03] MEDS: ALUMINUM/MAGNES/SIMETH MAX STR 30 ML UDCUP PO PRN (00:05)
[2022-06-03] MEDS ORDERED: METOPROLOL TARTRATE 5 MG/5 ML VIAL IV PRN (00:10)
[2022-06-03] MEDS: ALBUTEROL/IPRATROPIUM 3 ML NEB RESP TX SCH ×4 (00:40→19:08)
[2022-06-03] MEDS: ENOXAPARIN 120 MG/0.8 ML SYRINGE SUBCUT SCH ×2 (01:23→12:58)
[2022-06-03 05:24] LABS: Basophils # 0.1 10*3/uL (0.0-0.2); Basophils % 0.5 % (0.0-0.8); Eosinophils # 0.5 10*3/uL (0.0-0.87); Eosinophils % 4.9 % (0.00-10.9); Hematocrit 28.1 VOL% (42.0-52.0); Hemoglobin 8.8 GM/DL (14.0-18.0); Immature Granulocytes % 0.7 %; Immature Granulocytes Absolute 0.07 #; Lymphocytes # 2.4 10*3/uL (1.4-4.0); Lymphocytes % 22.7 % (21.2-54.2); Mean Corpuscular HGB Conc 31.3 GM/DL (32-36); Mean Corpuscular Volume 97.9 FL (87-102); Mean Platelet Volume 10.3 FL (9.6-12.0); Monocytes % 9.4 % (1.7-12.7); Neutrophils % 61.8 % (38.7-73.9); Platelet Count 217 T/CUMM (130-400); Red Blood Count 2.87 MC/CUMM (3.8-5.5); Red Cell Distribution Width 14.3 % (9.3-17.3); White Blood Count 10.5 T/CUMM (4-12)
[2022-06-03] MEDS: KETOROLAC 30 MG/1 ML VIAL IV SCH ×3 (05:35→18:09)
[2022-06-03 05:52] LABS: Alanine Aminotransferase 28 U/L (16-61); Albumin 2.5 G/DL (3.4-5.0); Alkaline Phosphatase 106 U/L (45-117); Aspartate Amino Transferase 15 U/L (0-37); Bilirubin,Total < 0.39 MG/DL (0.20-1.00); Blood Urea Nitrogen 39 MG/DL (7-18); Calcium 8.2 MG/DL (8.5-10.1); Carbon Dioxide 29 MMOL/L (21-32); Chloride 106 MMOL/L (98-107); Glucose 284 MG/DL (74-106); Osmolality,Calculated 295.5 MOS/KG (273-304); Potassium 4.2 MMOL/L (3.5-5.1); Sodium 139 MMOL/L (136-145); Total Protein 5.7 G/DL (6.4-8.2)
[2022-06-03 05:55] LABS: Bilirubin,Indirect 0.3 MG/DL (0.0-1.0)
[2022-06-03] MEDS: ASPIRIN EC 81 MG TABLET PO SCH (09:32)
[2022-06-03] MEDS: ASCORBIC ACID 500 MG TABLET PO SCH ×2 (09:32→21:29)
[2022-06-03] MEDS: CHLORHEXIDINE 0.12% ORAL RINSE 60 ML BOTTLE SWISH/SPIT SCH ×2 (09:32→21:30)
[2022-06-03] MEDS: GLIMEPIRIDE 4 MG TABLET PO SCH (09:32)
[2022-06-03] MEDS: FERROUS SULFATE 325 MG TABLET PO SCH (09:32)
[2022-06-03] MEDS: METOPROLOL TARTRATE 25 MG TABLET PO SCH ×2 (09:32→21:28)
[2022-06-03] MEDS: INSULIN REGULAR 100 UNIT/ML SUBCUT SCH ×4 (09:32→21:31)
[2022-06-03] MEDS: GABAPENTIN 400 MG CAPSULE PO SCH ×3 (09:32→21:30)
[2022-06-03] MEDS: PANTOPRAZOLE 40 MG TABLET PO SCH (09:32)
[2022-06-03] MEDS: metFORMIN 500 MG TABLET PO SCH ×2 (09:32→18:09)
[2022-06-03] MEDS: DOCUSATE SODIUM 100 MG CAPSULE PO SCH ×2 (09:32→21:29)
[2022-06-03] MEDS ORDERED: AMIODARONE INJ 150 MG in DEXTROSE 5% 100 ML IV ONE (16:01)
[2022-06-03] MEDS ORDERED: AMIODARONE INJ 450 MG in DEXTROSE 5% 241 ML IV SCH (16:30)
[2022-06-03] MEDS: SERTRALINE 50 MG TABLET PO SCH (21:29)
[2022-06-03] MEDS: APIXABAN 5 MG TABLET PO SCH (21:29)
[2022-06-03] MEDS: ZALEPLON 5 MG CAPSULE PO PRN (21:30)
[2022-06-03] MEDS: AMITRIPTYLINE 25 MG TABLET PO SCH (21:30)
[2022-06-03] MEDS: PIOGLITAZONE 15 MG TABLET PO SCH (21:30)
[2022-06-03] MEDS: ROSUVASTATIN 20 MG TABLET PO SCH (21:30)
[2022-06-03] MEDS: AMIODARONE 200 MG TABLET PO SCH (21:31)
[2022-06-04] MEDS: ALBUTEROL/IPRATROPIUM 3 ML NEB RESP TX SCH ×2 (00:06→06:50)
[2022-06-04 06:09] LABS: Basophils % 0.4 % (0.0-0.8); Eosinophils # 0.4 10*3/uL (0.0-0.87); Eosinophils % 4.5 % (0.00-10.9); Hematocrit 27.6 VOL% (42.0-52.0); Hemoglobin 8.7 GM/DL (14.0-18.0); Immature Granulocytes % 0.9 %; Immature Granulocytes Absolute 0.08 #; Lymphocytes # 1.8 10*3/uL (1.4-4.0); Lymphocytes % 19.5 % (21.2-54.2); Mean Corpuscular HGB Conc 31.5 GM/DL (32-36); Mean Corpuscular Volume 97.9 FL (87-102); Mean Platelet Volume 10.3 FL (9.6-12.0); Monocytes # 0.9 10*3/uL (0.11-0.8); Monocytes % 9.6 % (1.7-12.7); NRBC # 0.02 10*3/uL; Neutrophils % 65.1 % (38.7-73.9); Platelet Count 224 T/CUMM (130-400); Red Blood Count 2.82 MC/CUMM (3.8-5.5); Red Cell Distribution Width 14.3 % (9.3-17.3); White Blood Count 9.2 T/CUMM (4-12)
[2022-06-04] MEDS: ALUMINUM/MAGNES/SIMETH MAX STR 30 ML UDCUP PO PRN (06:26)
[2022-06-04 06:45] LABS: Alanine Aminotransferase 26 U/L (16-61); Albumin 2.5 G/DL (3.4-5.0); Alkaline Phosphatase 107 U/L (45-117); Aspartate Amino Transferase 11 U/L (0-37); Bilirubin,Direct < 0.100 MG/DL (0.0-0.20); Bilirubin,Total < 0.39 MG/DL (0.20-1.00); Blood Urea Nitrogen 30 MG/DL (7-18); Calcium 8.4 MG/DL (8.5-10.1); Carbon Dioxide 28 MMOL/L (21-32); Chloride 106 MMOL/L (98-107); Glucose 298 MG/DL (74-106); Osmolality,Calculated 291.7 MOS/KG (273-304); Potassium 4.8 MMOL/L (3.5-5.1); Sodium 138 MMOL/L (136-145); Total Protein 5.9 G/DL (6.4-8.2)
[2022-06-04 06:46] LABS: Bilirubin,Indirect 0.3 MG/DL (0.0-1.0)
[2022-06-04] MEDS: ASCORBIC ACID 500 MG TABLET PO SCH (09:09)
[2022-06-04] MEDS: PANTOPRAZOLE 40 MG TABLET PO SCH (09:09)
[2022-06-04] MEDS: APIXABAN 5 MG TABLET PO SCH (09:09)
[2022-06-04] MEDS: metFORMIN 500 MG TABLET PO SCH (09:09)
[2022-06-04] MEDS: DOCUSATE SODIUM 100 MG CAPSULE PO SCH (09:09)
[2022-06-04] MEDS: ASPIRIN EC 81 MG TABLET PO SCH (09:10)
[2022-06-04] MEDS: INSULIN REGULAR 100 UNIT/ML SUBCUT SCH (09:10)
[2022-06-04] MEDS: METOPROLOL TARTRATE 25 MG TABLET PO SCH (09:10)
[2022-06-04] MEDS: GLIMEPIRIDE 4 MG TABLET PO SCH (09:10)
[2022-06-04] MEDS: GABAPENTIN 400 MG CAPSULE PO SCH (09:10)
[2022-06-04] MEDS: FERROUS SULFATE 325 MG TABLET PO SCH (09:10)
[2022-06-04] MEDS: AMIODARONE 200 MG TABLET PO SCH (09:10)
[2022-06-04] MEDS: CHLORHEXIDINE 0.12% ORAL RINSE 60 ML BOTTLE SWISH/SPIT SCH (09:12)
[2022-06-04 14:40] VITALS: BP 121/74
== END 2022-06-04 11:49 | disposition home health service (06) | DRG 236 ==
LOC: N.5E 14:18 → N.CVR 05-29 10:54 → N.ICU 05-30 07:21 → N.TELES 06-01 17:41